=== PATIENT | female | born 1940 | race Caucasian/White ===

== ENCOUNTER 2021-07-19 12:22 | Inpatient (IN) ==
[2021-07-19 15:31] LABS: ABS Basophils 0.1 10^3/ul (0-0.2); ABS Eosinophils 0.1 10^3/ul (0-0.6); ABS Lymphocytes 2.4 10^3/ul (1.0-4.8); ABS Monocytes 0.4 10^3/ul (0-0.8); ABS Neutrophils 5.5 10^3/ul (1.5-7.7); Eosinophil % 0.9 %; Hematocrit 41 % (35-47); Hemoglobin 14.1 g/dL (12.0-16.0); Lymphocyte % 28.1 %; Mean Corpuscular HGB Conc 34 g/dL (31-36); Mean Corpuscular Hemoglobin 32 pg (27-31); Mean Corpuscular Volume 93 fL (80-97); Mean Platelet Volume 9.2 fL (7.4-10.4); Platelet Count 258 10^3/uL (150-450); Red Blood Count 4.47 10^6 /uL (3.70-4.87); Red Cell Distribution Width 15 % (10-15); White Blood Count 8.4 10^3/uL (3.5-10.8)
[2021-07-19 15:50] LABS: ALT 16 U/L (7-52); AST 18 U/L (13-39); Albumin 4.6 g/dL (3.2-5.2); Albumin/Globulin Ratio 1.6 (1-3); Alkaline Phosphatase 71 U/L (35-149); Anion Gap 5 mmol/L (2-11); Blood Urea Nitrogen 19 mg/dL (6-24); C Reactive Protein < 1.00 mg/L (<8.01); CO2 Carbon Dioxide 30 mmol/L (22-32); Calcium 10.4 mg/dL (8.6-10.3); Chloride 104 mmol/L (101-111); Globulin 2.9 g/dL (2-4); Glucose 113 mg/dL (70-100); Sodium 139 mmol/L (135-145); Total Protein 7.5 g/dL (6.4-8.9); eGFR CKD-EPI 85.5 (>60)
[2021-07-19 15:51] LABS: Troponin I 0.01 ng/mL (<0.03)
[2021-07-19 16:19] LABS: Urine Appearance Cloudy; Urine Bilirubin Negative (Negative); Urine Blood Negative (Negative); Urine Color Yellow; Urine Glucose Negative (Negative); Urine Ketones Negative (Negative); Urine Nitrite Negative (Negative); Urine Protein Negative (Negative); Urine Specific Gravity 1.026 (1.002-1.030); Urine Urobilinogen Negative (Negative)
[2021-07-19 16:26] LABS: Urine Bacteria 1+ (Absent); Urine Red Blood Cell Trace(0-2/hpf) (Absent); Urine Squamous Epithelial Cell Present (Absent); Urine White Blood Cell Trace(0-5/hpf) (Absent)
[2021-07-19] MEDS ORDERED: Enoxaparin 30 MG/0.3 ML SYR SUBCUT SCH (17:00)
[2021-07-19 18:09] LABS: Vitamin B12 287 pg/mL (180-914)
[2021-07-21] MEDS ORDERED: Calcium Carb (TUMS) 500 mg CHEW TAB PO ONE (04:40)
[2021-07-21] MEDS ORDERED: PPD test dose 5 TU/0.1 ML TEST (*USE PPD ORDER SET*) INTRADERM ONE (17:00)
[2021-07-22] MEDS: CMCS: Lactase Enzyme (NF) 3,000 UNIT TAB PO SCH ×2 (13:27→18:03)
[2021-07-23 07:46] VITALS: BP 136/66
[2021-07-23] MEDS: CMCS: Lactase Enzyme (NF) 3,000 UNIT TAB PO SCH ×2 (09:12→12:44)
== END 2021-07-23 15:00 | disposition home or self-care (01) | DRG 884 ==
LOC: ED 12:22 → SUATTDRO 16:47 → EDHOLD 16:47 → MED 07-20 19:27
PROVIDERS: ADMIT Hospitalist; ATTEND Hospitalist